=== PATIENT | male | born 1995 | race Caucasian/White ===

== ENCOUNTER 2016-08-23 01:38 | Emergency (ER) | payer SELFPAY ==
--- NOTE | 2016-08-23 02:17 | EDM.PDOC ---
[id number]: RAVINDRA Time Seen by Provider: 08/23/16 02:11 Source of Information: Reports: Patient, Police History Limitations: Reports: No Limitations - History of Present Illness INITIAL COMMENTS - FREE TEXT/NARRATIVE: pt arrived with a history of having 3 different knives that he tried to harm himself with. His friend wrestled the knives away from him. He was determined that he was going to kill himself. He was kicked out from his girlfriends place so he does not have a place to live. He feels that he is messing up repeatedly. He has never tried suicide in the past. He has been depressed. Onset: Today Duration: Getting Worse Associated Symptoms: Reports: Other (pt is very depressed. He has been drinking today. He has lost his moter a few monthes ago. ) denies pain Pain Score (Numeric/FACES): 0 - Related Data Allergies Allergy/AdvReac Type Severity Reaction Status Date / Time No Known Allergies Allergy Verified 08/23/16 02:22 Home Meds: Home Meds Dextroamphetamine/Amphetamine [Adderall] 15 mg PO DAILY 02/22/16 [History] Past Medical History Cardiovascular History: Reports: Other (See Below) Other Cardiovascular History: states had a "rapid heart beat" as young boy Respiratory History: Reports: Asthma Psychiatric History: Reports: ADHD - Past Surgical History Cardiovascular Surgical History: Reports: None Social & Family History - Tobacco Use Smoking Status *Q: Never Smoker - Recreational Drug Use Recreational Drug Use: No ED ROS GENERAL - Review of Systems Review Of Systems: See Below Constitutional: Reports: No Symptoms HEENT: Reports: No Symptoms Respiratory: Reports: No Symptoms Cardiovascular: Reports: No Symptoms Endocrine: Reports: No Symptoms GI/Abdominal: Reports: No Symptoms : Reports: No Symptoms Neurological: Reports: Other ( depression) ED EXAM, BEHAVIORAL HEALTH - Physical Exam Exam: See Below Text/Narrative:: pt was going to cut his throat with a knife. His friend did take three knives away from him. Exam Limited By: No Limitations General Appearance: Alert, Anxious Ears: Normal TMs Nose: Normal Inspection Throat/Mouth: Normal Inspection Head: Atraumatic Neck: Normal Inspection Respiratory/Chest: No Respiratory Distress Extremities: Normal Inspection Neurological: Alert, Normal Cognition, Oriented x 3 Psychiatric: Alert, Normal Cognition, Oriented, Depressed Mood, Suicidal Plan, Other (pt trid to cut his throt tonight. ) COURSE, BEHAVIORAL HEALTH COMP - Course Vital Signs: Last Vital Signs Temp 36.6 C 08/23/16 02:23 Pulse 78 08/23/16 09:01 Resp 18 08/23/16 09:01 BP 145/75 H 08/23/16 09:01 Pulse Ox 98 08/23/16 09:01 Orders, Labs, Meds: Laboratory Tests 08/23/16 08/23/16 08/23/16 Range/Units 01:41 01:41 01:41 WBC 7.9 (4.5-11.0) K/uL RBC 5.42 (4.30-5.90) M/uL Hgb 15.1 H (12.0-15.0) g/dL Hct 44.0 (40.0-54.0) % MCV 81 (80-98) fL MCH 28 (27-31) pg MCHC 34 (32-36) % Plt Count 310 (150-400) K/uL Neut % (Auto) 50 (36-66) % Lymph % (Auto) 35 (24-44) % Hale % (Auto) 10 H (2-6) % Eos % (Auto) 5 H (2-4) % Baso % (Auto) 1 (0-1) % Sodium 143 (140-148) mmol/L Potassium 4.2 (3.6-5.2) mmol/L Chloride 106 (100-108) mmol/L Carbon Dioxide 26 (21-32) mmol/L Anion Gap 11.0 (5.0-14.0) mmol/L BUN 16 (7-18) mg/dL Creatinine 1.2 (0.8-1.3) mg/dL Est Cr Clr Drug Dosing TNP Estimated GFR (MDRD) > 60 (>60) Glucose 95 (74-106) mg/dL Calcium 9.0 (8.5-10.1) mg/dL Total Bilirubin 0.8 D (0.2-1.0) mg/dL AST 28 (15-37) U/L ALT 27 (12-78) U/L Alkaline Phosphatase 87 (46-116) U/L Total Protein 8.0 (6.4-8.2) g/dL Albumin 4.3 (3.4-5.0) g/dL Globulin 3.7 H (2.3-3.5) g/dL Albumin/Globulin Ratio 1.2 (1.2-2.2) TSH, Ultra Sensitive (0.358-3.740) uIU/mL Urine Color Urine Appearance Urine pH (4.5-8.0) Ur Specific [place] (1.008-1.030) Urine Protein (NEGATIVE) mg/dL Urine Glucose (UA) (NEGATIVE) mg/dL Urine Ketones (NEGATIVE) mg/dL Urine Occult Blood (NEGATIVE) Urine Nitrite (NEGAITVE) Urine Bilirubin (NEGATIVE) Urine Urobilinogen (NORMAL) mg/dL Ur Leukocyte Esterase (NEGATIVE) Urine RBC (0-5) Urine WBC (0-5) Ur Epithelial Cells Amorphous Sediment Urine Bacteria Urine Mucus Salicylates (2.0-20.0) mg/dL Urine Opiates Screen (NEGATIVE) Ur Oxycodone Screen (NEGATIVE) Urine Methadone Screen (NEGATIVE) Ur Propoxyphene Screen (NEGATIVE) Acetaminophen (10.0-30.0) ug/mL Ur Barbiturates Screen (NEGATIVE) Ur Tricyclics Screen (NEGATIVE) Ur Phencyclidine Scrn (NEGATIVE) Ur Amphetamine Screen (NEGATIVE) U Methamphetamines Scrn (NEGATIVE) Urine MDMA Screen (NEGATIVE) U Benzodiazepines Scrn (NEGATIVE) U Cocaine Metab Screen (NEGATIVE) U Marijuana (THC) Screen (NEGATIVE) Ethyl Alcohol 54 mg/dL 08/23/16 08/23/16 08/23/16 Range/Units 02:45 02:45 04:30 WBC (4.5-11.0) K/uL RBC (4.30-5.90) M/uL Hgb (12.0-15.0) g/dL Hct (40.0-54.0) % MCV (80-98) fL MCH (27-31) pg MCHC (32-36) % Plt Count (150-400) K/uL Neut % (Auto) (36-66) % Lymph % (Auto) (24-44) % Hale % (Auto) (2-6) % Eos % (Auto) (2-4) % Baso % (Auto) (0-1) % Sodium (140-148) mmol/L Potassium (3.6-5.2) mmol/L Chloride (100-108) mmol/L Carbon Dioxide (21-32) mmol/L Anion Gap (5.0-14.0) mmol/L BUN (7-18) mg/dL Creatinine (0.8-1.3) mg/dL Est Cr Clr Drug Dosing Estimated GFR (MDRD) (>60) Glucose (74-106) mg/dL Calcium (8.5-10.1) mg/dL Total Bilirubin (0.2-1.0) mg/dL AST (15-37) U/L ALT (12-78) U/L Alkaline Phosphatase (46-116) U/L Total Protein (6.4-8.2) g/dL Albumin (3.4-5.0) g/dL Globulin (2.3-3.5) g/dL Albumin/Globulin Ratio (1.2-2.2) TSH, Ultra Sensitive 2.722 (0.358-3.740) uIU/mL Urine Color Urine Appearance Urine pH (4.5-8.0) Ur Specific [place] (1.008-1.030) Urine Protein (NEGATIVE) mg/dL Urine Glucose (UA) (NEGATIVE) mg/dL Urine Ketones (NEGATIVE) mg/dL Urine Occult Blood (NEGATIVE) Urine Nitrite (NEGAITVE) Urine Bilirubin (NEGATIVE) Urine Urobilinogen (NORMAL) mg/dL Ur Leukocyte Esterase (NEGATIVE) Urine RBC (0-5) Urine WBC (0-5) Ur Epithelial Cells Amorphous Sediment Urine Bacteria Urine Mucus Salicylates 0.8 L (2.0-20.0) mg/dL Urine Opiates Screen Negative (NEGATIVE) Ur Oxycodone Screen Negative (NEGATIVE) Urine Methadone Screen Negative (NEGATIVE) Ur Propoxyphene Screen Negative (NEGATIVE) Acetaminophen 0.0 L (10.0-30.0) ug/mL Ur Barbiturates Screen Negative (NEGATIVE) Ur Tricyclics Screen Negative (NEGATIVE) Ur Phencyclidine Scrn Negative (NEGATIVE) Ur Amphetamine Screen Positive H (NEGATIVE) U Methamphetamines Scrn Negative (NEGATIVE) Urine MDMA Screen Negative (NEGATIVE) U Benzodiazepines Scrn Negative (NEGATIVE) U Cocaine Metab Screen Negative (NEGATIVE) U Marijuana (THC) Screen Positive H (NEGATIVE) Ethyl Alcohol mg/dL 08/23/16 Range/Units 04:30 WBC (4.5-11.0) K/uL RBC (4.30-5.90) M/uL Hgb (12.0-15.0) g/dL Hct (40.0-54.0) % MCV (80-98) fL MCH (27-31) pg MCHC (32-36) % Plt Count (150-400) K/uL Neut % (Auto) (36-66) % Lymph % (Auto) (24-44) % Hale % (Auto) (2-6) % Eos % (Auto) (2-4) % Baso % (Auto) (0-1) % Sodium (140-148) mmol/L Potassium (3.6-5.2) mmol/L Chloride (100-108) mmol/L Carbon Dioxide (21-32) mmol/L Anion Gap (5.0-14.0) mmol/L BUN (7-18) mg/dL Creatinine (0.8-1.3) mg/dL Est Cr Clr Drug Dosing Estimated GFR (MDRD) (>60) Glucose (74-106) mg/dL Calcium (8.5-10.1) mg/dL Total Bilirubin (0.2-1.0) mg/dL AST (15-37) U/L ALT (12-78) U/L Alkaline Phosphatase (46-116) U/L Total Protein (6.4-8.2) g/dL Albumin (3.4-5.0) g/dL Globulin (2.3-3.5) g/dL Albumin/Globulin Ratio (1.2-2.2) TSH, Ultra Sensitive (0.358-3.740) uIU/mL Urine Color Yellow Urine Appearance Clear Urine pH 5.0 (4.5-8.0) Ur Specific [place] 1.030 (1.008-1.030) Urine Protein Negative (NEGATIVE) mg/dL Urine Glucose (UA) Normal (NEGATIVE) mg/dL Urine Ketones Negative (NEGATIVE) mg/dL Urine Occult Blood Negative (NEGATIVE) Urine Nitrite Negative (NEGAITVE) Urine Bilirubin Negative (NEGATIVE) Urine Urobilinogen Normal (NORMAL) mg/dL Ur Leukocyte Esterase Negative (NEGATIVE) Urine RBC 0-5 (0-5) Urine WBC 0-5 (0-5) Ur Epithelial Cells Few Amorphous Sediment Not seen Urine Bacteria Few Urine Mucus Few Salicylates (2.0-20.0) mg/dL Urine Opiates Screen (NEGATIVE) Ur Oxycodone Screen (NEGATIVE) Urine Methadone Screen (NEGATIVE) Ur Propoxyphene Screen (NEGATIVE) Acetaminophen (10.0-30.0) ug/mL Ur Barbiturates Screen (NEGATIVE) Ur Tricyclics Screen (NEGATIVE) Ur Phencyclidine Scrn (NEGATIVE) Ur Amphetamine Screen (NEGATIVE) U Methamphetamines Scrn (NEGATIVE) Urine MDMA Screen (NEGATIVE) U Benzodiazepines Scrn (NEGATIVE) U Cocaine Metab Screen (NEGATIVE) U Marijuana (THC) Screen (NEGATIVE) Ethyl Alcohol mg/dL Medical Clearance: 08/23/16 02:20 pt refused al lab work 08/25/16 18:07 pt finally did allow labs. His drug screen was done andhis otherlabs were neg. He was only positive for [place] interms of street drugs. 08/25/16 18:09 08/25/16 18:12 acceptance was obtained at [facility] Departure - Departure Time of Disposition: 09:20 Disposition: DC/Tfer to [facility]pt Rehab Fac [facility] Clinical Impression: Depression, Suicidal ideation - Discharge Information Referrals: PCP,None [Primary Care Provider] - Forms: ED Department Discharge Care Plan Goals: transfer to [facility]
[2016-08-23 09:02] VITALS: BP 145/75
== END 2016-08-23 09:19 ==
LOC: JP.ED 01:38
DX: F32.9 Major depressive disorder, single episode, unspecified (principal); R45.851 Suicidal ideations; F90.9 Attention-deficit hyperactivity disorder, unspecified type; J45.909 Unspecified asthma, uncomplicated; Z79.899 Other long term (current) drug therapy
CPT/HCPCS: 36415; 80053; 80305; 81001; 84443; 85025; 99285; G0480

== ENCOUNTER 2019-01-12 17:35 | Emergency (ER) | payer SELFPAY ==
[2019-01-12] MEDS ORDERED: Lidocaine 1% with EPINEPHrine 1:100,000 50 ML MDV INFILT ONE (17:47)
[2019-01-12] MEDS ORDERED: Bacitracin Oint 1 GM U/D Packet TOP ONE (17:49)
[2019-01-12 17:51] VITALS: BP 135/79; PULSE 87
--- NOTE | 2019-01-12 18:19 | EDM.PDOC ---
ED HPI GENERAL MEDICAL PROBLEM - General Chief Complaint: Laceration Stated Complaint: CUT FINGER AT WORK Time Seen by Provider: 01/12/19 18:00 Source of Information: Reports: Patient History Limitations: Reports: No Limitations - History of Present Illness INITIAL COMMENTS - FREE TEXT/NARRATIVE: 23-year-old male with a laceration injury to the distal aspect of his middle finger on the left hand. He was cutting fruit at work, with a sharp knife, when he completely lacerated and evulsed the radial aspect of the middle finger distally. It is a 1 x 1 cm round piece of amputated skin, with a small amount of nail. Bleeding is brisk. No other injury. Tetanus is current. Onset: Sudden Duration: Hour(s): (within the last hour) Location: Reports: Upper Extremity, Left Associated Symptoms: Reports: No Other Symptoms Left Finger-Index Pain Score (Numeric/FACES): 8 - Related Data Allergies Allergy/AdvReac Type Severity Reaction Status Date / Time No Known Allergies Allergy Verified 12/15/17 18:33 Home Meds: Home Meds NK [No Known Home Meds] 12/15/17 [History] Past Medical History HEENT History: Reports: Impaired Vision Cardiovascular History: Reports: Other (See Below) Other Cardiovascular History: states had a "rapid heart beat" as young boy Respiratory History: Reports: Asthma Psychiatric History: Reports: ADHD - Past Surgical History Cardiovascular Surgical History: Reports: None Social & Family History - Tobacco Use Smoking Status *Q: Never Smoker - Caffeine Use Caffeine Use: Reports: Soda - Recreational Drug Use Recreational Drug Use: No ED ROS GENERAL - Review of Systems Review Of Systems: See Below Constitutional: Denies: Fever Respiratory: Reports: No Symptoms GI/Abdominal: Reports: No Symptoms Neurological: Denies: Paresthesia ED EXAM, SKIN/RASH Exam: See Below Exam Limited By: No Limitations General Appearance: Alert, No Apparent Distress (Patient is very anxious and uncomfortable but not distressed), Anxious Respiratory/Chest: No Respiratory Distress Extremities: Other (Exam is otherwise limited to the left hand. Patient has a round piece of amputated skin into the subcutaneous tissue on the distal radial aspect of the middle finger with the corner of the nail amputated as well. Bleeding is brisk.) Course - Vital Signs Last Recorded V/S: Last Vital Signs Temp 96.5 F 01/12/19 17:57 Pulse 87 01/12/19 17:57 Resp 16 01/12/19 17:57 BP 135/79 01/12/19 17:57 Pulse Ox 98 01/12/19 17:57 - Orders/Labs/Meds Meds: Medications Discontinued Medications Generic Name Dose Route Start Last Admin Trade Name Vickie PRN Reason Stop Dose Admin Bacitracin 1 dose 01/12/19 17:49 01/12/19 18:00 Bacitracin Oint 1 Gm TOP 01/12/19 17:50 1 dose ONETIME ONE Administration Lidocaine/Epinephrine 30 ml 01/12/19 17:47 01/12/19 18:00 Xylocaine 1% With Epinephrine 1:100,000 INFILT 01/12/19 17:48 30 ml ONETIME ONE Administration - Re-Assessments/Exams Free Text/Narrative Re-Assessment/Exam: 01/12/19 18:17 the injury was anesthetized with 1% lidocaine with epinephrine, and cleansed thoroughly with saline after applying a rubber tourniquet to the finger. 6 5-0 Ethilon sutures were used to replace the amputated piece to use as a bandage for healing. The small piece of nail was removed. He'll be placed on cephalexin 500 twice a day for 10 days, sutures are to be removed in 10 days, and a tube gauze was placed for the next 24 hours. He was also given an aluminum foam splint to wear to cover the distal finger while it's healing. He can recheck sooner if concerns of infection or not healing satisfactorily. Departure - Departure Time of Disposition: 18:24 Disposition: Home, Self-Care 01 Clinical Impression: Laceration of left middle finger with damage to nail Qualifiers: Encounter type: initial encounter Foreign body presence: without foreign body Qualified Code(s): S61.313A - Laceration without foreign body of left middle finger with damage to nail, initial encounter - Discharge Information Instructions: Laceration Care, Adult, [id number] Referrals: PCP,None [Primary Care Provider] - Forms: ED Department Discharge Care Plan Goals: Keep wound covered and clean while healing, and protect with aluminum splint when active. Sutures can be removed in 10 days. Recheck sooner if concerns of infection or not healing satisfactorily. A regular dose of ibuprofen or naproxen will be helpful, add stronger pain medication if needed as directed.
== END 2019-01-12 18:24 | disposition home or self-care (01) ==
LOC: JP.ED 17:35
DX: S61.313A Laceration without foreign body of left middle finger with damage to nail, initial encounter (principal); J45.909 Unspecified asthma, uncomplicated; W26.0XXA Contact with knife, initial encounter; Y92.89 Other specified places as the place of occurrence of the external cause; Y93.89 Activity, other specified; Y99.0 Civilian activity done for income or pay
CPT/HCPCS: 12001; 99282-25

== ENCOUNTER 2022-04-01 11:43 | Emergency (ER) | payer MEDICAID ==
[2022-04-01 12:50] VITALS: BP 138/78; PULSE 79
== END 2022-04-01 13:07 | disposition home or self-care (01) ==
LOC: JP.ED 11:43
DX: J02.9 Acute pharyngitis, unspecified (principal); Z20.822 Contact with and (suspected) exposure to COVID-19
CPT/HCPCS: 87081; 87880-QW; 99283; U0002

== ENCOUNTER 2022-12-22 15:58 | Emergency (ER) | payer MEDICAID ==
[2022-12-22 16:25] VITALS: BP 134/71; PULSE 64
[2022-12-22] MEDS ORDERED: Ketorolac 30 MG/ML SDV IM ONE (16:51)
== END 2022-12-22 17:23 | disposition home or self-care (01) ==
LOC: JP.ED 15:58
DX: K04.7 Periapical abscess without sinus (principal); K03.81 Cracked tooth; J45.909 Unspecified asthma, uncomplicated; F17.210 Nicotine dependence, cigarettes, uncomplicated
CPT/HCPCS: 96372; 99282; J1885

== ENCOUNTER 2023-02-06 14:42 | Emergency (ER) | payer MEDICAID ==
[2023-02-06 14:56] VITALS: BP 130/84; PULSE 71
== END 2023-02-06 16:50 | disposition home or self-care (01) ==
LOC: JP.ED 14:42
DX: H53.2 Diplopia (principal); F17.210 Nicotine dependence, cigarettes, uncomplicated; Z86.16 Personal history of COVID-19
CPT/HCPCS: 70450; 70450-26; 99285